=== PATIENT | female | born 1970 ===

== ENCOUNTER 2017-02-09 11:04 | Emergency (ER) | payer BC ==
[2017-02-09 11:11] VITALS: O2SAT 100
--- NOTE | 2017-02-09 11:44 | C.PDOC ---
History Of Present Illness 43 y/o female with hx fibromyalgia and anxiety c/o dysuria for more than a week ; pt called her pmd and just completed a week course of cipro, still has symptoms, and left sided lower back pain. pt also c/o 1 week hx of nausea, epigastric burning pain, with decreased appetite,and generalized fatigue and weakness. pt denies fever, chills, cp, diarrhea. pt vomited once a few days ago. Time Seen by Provider: 02/09/17 11:21 Chief Complaint (Nursing): Female Genitourinary Past Medical History Vital Signs: Last Vital Signs Temp 99 F 02/09/17 15:02 Pulse 80 02/09/17 15:02 Resp 20 02/09/17 15:02 BP 91/61 L 02/09/17 15:02 Pulse Ox 100 02/09/17 15:02 - Medical History PMH: Anxiety, Fibromyalgia Family History: States: Unknown Family Hx - Social History Hx Alcohol Use: No Hx Substance Use: No - Immunization History Hx Tetanus Toxoid Vaccination: No Hx Influenza Vaccination: No Hx Pneumococcal Vaccination: No ED Course And Treatment - Laboratory Results Result Diagrams: 02/09/17 11:54 02/09/17 11:54 O2 Sat by Pulse Oximetry: 100 Medical Decision Making Medical Decision Making: pt feeling much better after zofran and pepcid, abdomen soft, nd, nt on re-exam , pt given po challenge. await ua results. pt advised she is anemic, reports heavy menses. await ua results. 250 pm pt feeling much better, tolerated po fluids and food, pt endorses feeling sad/sometimes depressed. denies hi, si and ah. will refer pt for outpatient counselling at [facility]. Disposition Counseled Patient/Family Regarding: Studies Performed, Diagnosis, Need For Followup, Rx Given - Disposition Referrals: [facility] [Outside] [facility] [Outside] Disposition: HOME/ ROUTINE Disposition Time: 14:53 Condition: IMPROVED Additional Instructions: Por favor, siga en la clnica mdica y con el gineclogo. Gonzalez orina no parece estar infectada en apolinar momento; le daremos seguimiento a los resultados preliminares, gonzalez anlisis de marleen muestra que est anmico. Debe comer alimentos con alto contenido de alfredo, abigail magras. Le carolina polly receta para pastillas de alfredo y un ablandador de heces (el alfredo a veces puede causar estreimiento). Tambin le carolian polly receta para Pepcid para gonzalez estmago. Por favor, natasha un seguimiento en la clnica de [facility] ([phone]) para gonzalez depresi n. Regrese a la marilyn de emergencias por cualquier sntoma peor. Please follow up in medical clinic, and with motion picture narrator. Your urine doesn't appear to be infected at this time; we will follow up on the cutlre results, Your blood work shows that you are anemic. You should eat high iron foods, lean meats. I will give you prescription for iron pills and stool softener ( iron can make you constipated sometimes). Also I will give you prescription for Pepcid for your stomach. Please follow up in [facility] ([phone]) for your depression. Return to ER for any worse symptoms. Prescriptions: Docusate Sodium [Colace] 100 mg PO BID #60 capsule Famotidine [Pepcid] 20 mg PO DAILY #14 tab Ferrous Sulfate 325 mg PO BID #60 tablet Instructions: Gastritis (ED), Diet for Ulcers and Gastritis (ED), Iron Deficiency Anemia (ED) Forms: Gen Discharge Inst [place], Work/School/Gym Excuse, [facility] ( [place]) Print Language: DANISH - Clinical Impression Clinical Impression: Gastritis, Anemia
[2017-02-09 11:59] LABS: BASO # 0.1 K/uL (0.0-0.2); BASO % 1.3 % (0.0-2.0); EOS # 0.1 K/uL (0.0-0.7); EOS % 2.5 % (0.0-4.0); HEMATOCRIT 29.4 % (34.0-47.0); LYMPH # 2.1 K/uL (1.0-4.3); LYMPH % 37.6 % (20.0-40.0); MEAN CELL VOLUME 66.6 fL (81.0-99.0); MEAN CORPUSCULAR HGB CONC 31.5 g/dL (33.0-37.0); MEAN PLATELET VOLUME 9.6 fL (7.2-11.7); MONO # 0.6 K/uL (0.0-0.8); MONO % 10.1 % (0.0-10.0); NRBC % 0.2 % (0.0-2.0); RED CELL DISTRIBUTION WIDTH 18.2 % (11.5-14.5); WHITE BLOOD COUNT 5.7 K/uL (4.8-10.8)
[2017-02-09 12:12] LABS: ALB/GLOB RATIO 1.4 (1.0-2.1); ALKALINE PHOSPHATASE 56 U/L (38-126); ALT/SGPT 32 U/L (9-52); AST/SGOT 22 U/L (14-36); BILIRUBIN,TOTAL 0.4 mg/dL (0.2-1.3); BLOOD UREA NITROGEN 11 mg/dL (7-17); CALCIUM 8.4 mg/dl (8.6-10.4); CARBON DIOXIDE 24 mmol/L (22-30); CHLORIDE 106 mmol/L (98-107); GFR AFRICAN-AMERICAN > 60; GLUCOSE,RANDOM 88 mg/dL (65-105); POTASSIUM 3.8 mmol/L (3.6-5.2); SODIUM 138 mmol/L (132-148); TOTAL PROTEIN 7.6 g/dL (6.3-8.3)
[2017-02-09 13:47] LABS: RBC URINE 2 /hpf (0-3); URINE BACTERIA RARE (<OCC); URINE BILIRUBIN NEGATIVE (NEGATIVE); URINE BLOOD 3+ (NEGATIVE); URINE COLOR Straw (YELLOW); URINE GLUCOSE (UA) NORMAL (Normal); URINE KETONE NEGATIVE (NEGATIVE); URINE LEUKOCYTE ESTERASE TRACE Leu/uL (Negative); URINE PROTEIN NEGATIVE (NEGATIVE); URINE UROBILINOGEN NORMAL mg/dL (0.2-1.0); WBC URINE 3 /hpf (0-5)
[2017-02-09 15:03] VITALS: BP 91/61; PULSE 80; RESP 20; TEMP 99
== END 2017-02-09 15:12 | disposition home or self-care (01) ==
LOC: C.ER 11:04
DX: K29.70 Gastritis, unspecified, without bleeding (principal); D64.9 Anemia, unspecified
CPT/HCPCS: 80053; 81001; 83690; 85025; 87086; 96374; 96375; 99284; J2405